=== PATIENT | female | born 1970 | race Caucasian/White ===

== ENCOUNTER → 2017-05-31 | Outpatient (CLI) | payer OTHER | LOC: CIMAGING 07:04 | PROVIDERS: ATTEND Physician Assistant | DX: K76.0 Fatty (change of) liver, not elsewhere classified (principal); I70.0 Atherosclerosis of aorta | CPT/HCPCS: 76705-PO ==

== ENCOUNTER 2017-08-12 17:26 | Inpatient (IN) | payer OTHER ==
[2017-08-12] MEDS ORDERED: NS 1,000 ML IV ONE ×2 (17:43→18:08)
[2017-08-12] MEDS ORDERED: ONDANSETRON 4 MG/2 ML VIAL IVP ONE (17:43)
[2017-08-12 17:48] LABS: HEMATOCRIT 45.9 % (38.0-47.0); HEMOGLOBIN 16.1 g/dL (12.6-16.3); MEAN CELL HEMOGLOBIN 36.5 pg (27.9-34.1); MEAN CELL HEMOGLOBIN CONCENTR. 35.1 g/dL (32.4-36.7); MEAN CELL VOLUME 104.1 fL (81.5-99.8); RED BLOOD CELL COUNT 4.41 10^6/uL (4.18-5.33); RED CELL DISTRIBUTION WIDTH 13.6 % (11.5-15.2)
[2017-08-12 18:01] LABS: ALBUMIN 5.8 g/dL (3.5-5.0); BILIRUBIN,TOTAL 1.9 mg/dL (0.1-1.4); CALCIUM 9.8 mg/dL (8.5-10.4); POTASSIUM 4.9 mEq/L (3.5-5.2); TOTAL PROTEIN 9.6 g/dL (6.3-8.2)
[2017-08-12] MEDS ORDERED: HYDROmorphONE/DILAUDID 1 MG/ML INJ IVP ONE (18:07)
[2017-08-12] MEDS ORDERED: KETOROLAC 30 MG/1 ML SDV IVP ONE (18:07)
[2017-08-12] MEDS ORDERED: KETOROLAC 30 MG/1 ML SDV ONE (18:23)
--- NOTE | 2017-08-12 18:45 | EDPHY ---
H & P Stated Complaint: c/o N/V/abd pain x 2 days Time Seen by Provider: 08/12/17 17:56 HPI/ROS: This patient complains of vomiting since Saturday afternoon x1 and then recurrent vomiting since 12:30 am with vomiting as frequently as every 20 minutes per patient. She reports concurrent onset of crampy abdominal pain located primarily in the epigastrium. She describes this as achy and crampy in nature, severe intensity radiating to her back. She has not had this type of belly problem before. She feels slightly bloated in addition to her other symptoms. She reports onset this evening of generalized weakness with her symptoms. She notes no exacerbating factors. She tried multiple positions but was unable to get comfortable. She notes no significant worsening of her abdominal pain with movement. ROS: Constitutional: No fevers or chills. HEENT: No URI symptoms recently Pulmonary: She reports some mild shortness of breath this afternoon. No coughing. Cardiovascular: No chest pain or heart palpitations. GI: No hematemesis. She reports mild constipation but still having bowel movements. Last bowel movement was 2 days prior to arrival normal consistency. She has been unable to tolerate p. o. food for 2 days. Minimal Pedialyte between vomiting : Last menstrual period-irregular due to Mirena ring. No vaginal discharge. No urinary symptoms. Integumentary: No skin rash Endocrine: No complaints Complete review of symptoms otherwise negative Source: Patient Exam Limitations: No limitations - Personal History LMP (Females 10-55): IUD In Place Current Tetanus Diphtheria and Acellular Pertussis (TDAP): Yes - Medical/Surgical History Other PMH: Currently under GI care for Reacurring Reflux/ bloating/ constipation - Family History Significant Family History: No pertinent family hx - Social History Smoking Status: Never smoked Alcohol Use: Heavy (The patient admits having 4-5 mixed drinks per day most days of the week.) Drug Use: None - Physical Exam Exam: Vital signs are normal with exception of hypertension 178/90 General Appearance: Alert, no distress. Eyes: Pupils equal and round no pallor or injection. ENT, Mouth: Mucous membranes moist. Respiratory: There are no retractions, lungs are clear to auscultation. Cardiovascular: Regular rate and rhythm. No murmur gallop or rub Gastrointestinal: Hypoactive bowel sounds with moderate epigastric tenderness and right upper quadrant tenderness. No guarding or rebound. No organomegaly is appreciated. Neurological: GCS 15. No focal deficits. Skin: Warm and dry, no rashes. Musculoskeletal: Neck is supple nontender. Extremities are symmetrical, full range of motion. Psychiatric: Patient is anxious. Otherwise mood and affect are normal. DIFFERENTIAL DIAGNOSIS: After history and physical exam differential diagnosis was considered for acute pancreatitis, cholecystitis, hepatitis, alcoholic ketoacidosis, dehydration, bowel obstruction Constitutional: Initial Vital Signs Temperature (C) 36.6 C 08/12/17 17:36 Heart Rate 74 08/12/17 17:36 Respiratory Rate 18 08/12/17 17:36 Blood Pressure 178/90 H 08/12/17 17:36 O2 Sat (%) 94 08/12/17 17:36 O2 Delivery Mode Room Air Allergies/Adverse Reactions: No Known Allergies Allergy (Unverified 08/12/17 18:54) Home Medications: Medication Instructions Recorded Effexor 08/12/17 Lisinopril 08/12/17 Medical Decision Making - Diagnostics Imaging: Discussed imaging studies w/ square dance caller Radiologist ED Course/Re-evaluation: Labs reveals significant leukocytosis and findings consistent with pancreatitis along with mildly elevated LFTs. IV normal saline bolus x2 L IV zofran with resolution of N/V Toradol, dilauded IV with partial relief of pain Patient's gallbladder ultrasound reveals no gallstones per Dr. Barrett - radiologist who reviewed the study. Discussion: Patient with alcohol pancreatitis warranting admission for aggressive hydration & further treatment. I counseled the patient regarding the plan. I spoke with Dr. Camron Hogan, hospitalist regarding this patient with plan for admission to [facility] for acute pancreatitis. Patient is stable at the time of transfer. - Data Points Laboratory Results: Laboratory Results 08/12/17 17:39 08/12/17 17:39 Medications Given: Hydromorphone/Sodium Chloride (Hydromorphone) 0.2 - 0.4 mg IVP Q2H PRN PRN Reason: Pain, Severe Unable to Take PO Stop: 08/22/17 22:25 Last Admin: 08/12/17 23:12 Dose: 0.4 mg Dextrose/Sodium Chloride (D5w 1/2 Ns) 1,000 mls @ 100 mls/hr IV CONT DIALLO Stop: 02/08/18 22:29 Last Admin: 08/12/17 23:11 Dose: 1,000 mls Ondansetron HCl (Zofran) 4 mg IVP Q4HRS PRN PRN Reason: Nausea/Vomiting, Can't Take PO Stop: 02/08/18 22:25 Last Admin: 08/12/17 23:11 Dose: 4 mg Oxycodone HCl (Oxycodone Ir) 5 - 10 mg PO Q3HRS PRN PRN Reason: Pain, Severe Able to Take PO Stop: 08/22/17 22:25 Last Admin: 08/13/17 06:49 Dose: 10 mg Discontinued Medications Hydromorphone HCl (Dilaudid) 0.5 mg IVP EDNOW ONE Stop: 08/12/17 18:08 Last Admin: 08/12/17 18:58 Dose: 0.5 mg Sodium Chloride (Ns) 1,000 mls @ 0 mls/hr IV ONCE ONE PRN Reason: Wide Open Stop: 08/12/17 17:44 Last Admin: 08/12/17 17:50 Dose: 1,000 mls Sodium Chloride (Ns) 1,000 mls @ 0 mls/hr IV EDNOW ONE; Wide Open PRN Reason: Protocol Stop: 08/12/17 18:09 Last Admin: 08/12/17 18:56 Dose: 1,000 mls Ketorolac Tromethamine (Toradol) 30 mg IVP EDNOW ONE Stop: 08/12/17 18:08 Last Admin: 08/12/17 18:57 Dose: 30 mg Ondansetron HCl (Zofran) 4 mg IVP EDNOW ONE Stop: 08/12/17 17:44 Last Admin: 08/12/17 17:51 Dose: 4 mg Departure - Departure Disposition: [facility]
[2017-08-12 20:57] LABS: LEUKOCYTE ESTERASE,URINE NEGATIVE (NEGATIVE); NITRITE,URINE NEGATIVE (NEGATIVE)
[2017-08-12 21:02] LABS: COLOR DARK YELLOW
[2017-08-12 21:05] LABS: BACTERIA TRACE /hpf (NONE SEEN); HYALINE CASTS 15-25 /lpf (0-1); MUCUS 2+ /lpf (NONE-1+); WBC,URINE OCCASIONAL /hpf (0-3)
[2017-08-12 21:08] LABS: ANION GAP 22 mEq/L (8-16); CALCIUM 8.2 mg/dL (8.5-10.4); CARBON DIOXIDE 20 mEq/l (22-31); CHLORIDE 100 mEq/L (97-110); CREATININE 0.8 mg/dL (0.6-1.0); GLOMERULAR FILTRATION RATE > 60; GLUCOSE 145 mg/dL (70-100); POTASSIUM 4.1 mEq/L (3.5-5.2); SODIUM 142 mEq/L (134-144)
[2017-08-12] MEDS ORDERED: HYDROmorphone HCL/NS/PF 0.4 MG/2 ML SYR IVP PRN (22:26)
[2017-08-12] MEDS ORDERED: PROMETHAZINE HCL 25 MG/ML INJ IVP PRN (22:26)
[2017-08-12] MEDS ORDERED: ACETAMINOPHEN 325 MG TAB PO PRN (22:26)
[2017-08-12] MEDS ORDERED: ONDANSETRON 4 MG/2 ML VIAL IVP PRN (22:26)
[2017-08-12] MEDS ORDERED: ONDANSETRON DISINTEGRATING 4 MG TAB PO PRN (22:26)
[2017-08-12] MEDS ORDERED: MELATONIN 3 MG TAB PO PRN (22:51)
[2017-08-12] MEDS: D5W 1/2 NS 1,000 ML IV SCH (23:11)
--- NOTE | 2017-08-13 00:15 | PDGENHP ---
History and Physical - Chief Complaint Vomiting - History of Present Illness 47 yo F w/ HTN and ETOH abuse presents with vomiting and abdominal pain. Patient drinks 1 pint of vodka daily about 4-5 times weekly; she has been doing this for a few years. Early this morning she began to have intractable vomiting and associated moderate to severe abdominal pain with radiation to her back. She denies blood in her vomit or stool. She also denies melena. Her only complaint currently is abdominal pain, but this is much better than earlier in the day. She denies any symptoms of withdrawal and says she has never been admitted to a hospital for withdrawal in the past. Her last drink was 6 PM on Saturday. History Information - Allergies/Home Medication List Allergies/Adverse Reactions: No Known Allergies Allergy (Unverified 08/12/17 18:54) Home Medications: Effexor 08/12/17 [Last Taken Unknown] Lisinopril 08/12/17 [Last Taken Unknown] I have personally reviewed and updated: family history, medical history - Past Medical History hypertension Additional medical history: ETOH abuse - Family History Positive for: hypertension - Social History Smoking Status: Never smoked Alcohol Use: Heavy (The patient admits having 4-5 mixed drinks per day most days of the week.) Drug Use: None Review of Systems Review of Systems: ROS: 10pt was reviewed & negative except for what was stated in HPI & below Physical Exam Physical Exam: Temp Pulse Resp BP Pulse Ox 36.9 C 95 16 176/113 H 96 08/12/17 22:52 08/12/17 22:52 08/12/17 22:52 08/12/17 22:52 08/12/17 22:52 Constitutional: no apparent distress, not in pain Eyes: PERRL, EOMI Ears, Nose, Mouth, Throat: moist mucous membranes, no oral mucosal ulcers Cardiovascular: systolic murmur, tachycardia Respiratory: no respiratory distress, clear to auscultation Gastrointestinal: normoactive bowel sounds, tenderness (Epi-gastric), No youssef' s sign, No guarding, No rebound, No distension Skin: warm, normal color Musculoskeletal: full muscle strength, no muscle tenderness Neurologic: AAOx3, CN II-XII Intact Psychiatric: interacting appropriately, not anxious Lab Data & Imaging Review 08/12/17 17:39 08/12/17 20:52 WBC 18.85 10^3/uL (3.80-9.50) H 08/12/17 17:39 RBC 4.41 10^6/uL (4.18-5.33) 08/12/17 17:39 Hgb 16.1 g/dL (12.6-16.3) 08/12/17 17:39 Hct 45.9 % (38.0-47.0) 08/12/17 17:39 MCV 104.1 fL (81.5-99.8) H 08/12/17 17:39 MCH 36.5 pg (27.9-34.1) H 08/12/17 17:39 MCHC 35.1 g/dL (32.4-36.7) 08/12/17 17:39 RDW 13.6 % (11.5-15.2) 08/12/17 17:39 Plt Count 246 10^3/uL (150-400) 08/12/17 17:39 Sodium 142 mEq/L (134-144) 08/12/17 20:52 Potassium 4.1 mEq/L (3.5-5.2) 08/12/17 20:52 Chloride 100 mEq/L (97-110) 08/12/17 20:52 Carbon Dioxide 20 mEq/l (22-31) L D 08/12/17 20:52 Anion Gap 22 mEq/L (8-16) H 08/12/17 20:52 BUN 16 mg/dL (7-23) 08/12/17 20:52 Creatinine 0.8 mg/dL (0.6-1.0) 08/12/17 20:52 Estimated GFR > 60 08/12/17 20:52 Glucose 145 mg/dL (70-100) H 08/12/17 20:52 Calcium 8.2 mg/dL (8.5-10.4) L D 08/12/17 20:52 Total Bilirubin 1.9 mg/dL (0.1-1.4) H 08/12/17 17:39 AST 100 IU/L (14-46) H 08/12/17 17:39 ALT 81 IU/L (9-52) H 08/12/17 17:39 Alkaline Phosphatase 59 IU/L (38-126) 08/12/17 17:39 Total Protein 9.6 g/dL (6.3-8.2) H 08/12/17 17:39 Albumin 5.8 g/dL (3.5-5.0) H 08/12/17 17:39 Lipase 866 IU/L (23-300) H 08/12/17 17:39 Beta HCG, Qual NEGATIVE 08/12/17 18:39 Urine Color DARK YELLOW 08/12/17 20:50 Urine Appearance HAZY 08/12/17 20:50 Urine pH 6.0 (5.0-7.5) 08/12/17 20:50 Ur Specific [place] 1.025 (1.002-1.030) 08/12/17 20:50 Urine Protein 1+ (NEGATIVE) H 08/12/17 20:50 Urine Ketones 3+ (NEGATIVE) H 08/12/17 20:50 Urine Blood TRACE (NEGATIVE) H 08/12/17 20:50 Urine Nitrate NEGATIVE (NEGATIVE) 08/12/17 20:50 Urine Bilirubin POSITIVE (NEGATIVE) H 08/12/17 20:50 Urine Urobilinogen 0.2 EU (0.2-1.0) 08/12/17 20:50 Ur Leukocyte Esterase NEGATIVE (NEGATIVE) 08/12/17 20:50 Urine RBC 1-3 /hpf (0-3) 08/12/17 20:50 Urine WBC OCCASIONAL /hpf (0-3) 08/12/17 20:50 Ur Epithelial Cells 2+ /lpf (NONE-1+) H 08/12/17 20:50 Urine Bacteria TRACE /hpf (NONE SEEN) H 08/12/17 20:50 Hyaline Casts 15-25 /lpf (0-1) H 08/12/17 20:50 Urine Mucus 2+ /lpf (NONE-1+) H 08/12/17 20:50 Urine Glucose NEGATIVE (NEGATIVE) 08/12/17 20:50 Imaging Review: Abdominal U/S with no acute findings, fatty liver noted. Assessment & Plan Assessment: 47 yo F w/ HTN and ETOH abuse presents with alcoholic pancreatitis. Plan: 1. Alcoholic pancreatitis - Abdominal pain with radiation to the back and elevated lipase in the setting of heavy ETOH use. WBC of 18 but no signs of sepsis at this time. Abdominal ultrasound unremarkable. There may be some contribution from gastritis as well. - NPO, mIVF, pain control - ADAT - Will start daily PPI - Counseled ETOH cessation 2. Abnormal LFTs - Transaminitis and elevated bili c/w mild alcoholic hepatitis. - Trend LFTs - Will check INR to calculate DF 3. ETOH abuse - Patient drinks 1 pint vodka 4-5x weekly. Denies previous history of withdrawal requiring hospitalization. - Monitor BMP, Mg, Ph - Monitor for signs of w/d, will not order CIWA at this time 4. HTN - On lisinopril as an outpatient, continue Diet - NPO, ADAT Code - Full Ppx - SCDs Dispo - Admit to observation status
[2017-08-13 05:52] LABS: % IMMATURE GRANULYOCYTES 0.7 % (0.0-1.1); ABSOLUTE IMMATURE GRANULOCYTES 0.12 10^3/uL (0.00-0.10); ADD DIFF? NO; ADD MORPH? NO; ADD SCAN? NO; ATYPICAL LYMPHOCYTE FLAG 0 (0-99); FRAGMENT RBC FLAG 0 (0-99); HEMATOCRIT 41.3 % (38.0-47.0); HEMOGLOBIN 13.9 g/dL (12.6-16.3); LEFT SHIFT FLG 0 (0-99); LIPEMIA HEMOLYSIS FLAG 80 (0-99); MEAN CELL HEMOGLOBIN 35.6 pg (27.9-34.1); MEAN CELL HEMOGLOBIN CONCENTR. 33.7 g/dL (32.4-36.7); MEAN CELL VOLUME 105.9 fL (81.5-99.8); MEAN PLATELET VOLUME 10.9 fL (8.7-11.7); PLATELET CLUMPS FLAG 0 (0-99); PLATELET COUNT 197 10^3/uL (150-400); RED CELL DISTRIBUTION WIDTH 13.7 % (11.5-15.2)
[2017-08-13 06:08] LABS: ALANINE AMINOTRANSFERASE 62 IU/L (9-52); ALBUMIN 4.4 g/dL (3.5-5.0); ALKALINE PHOSPHATASE 48 IU/L (38-126); ANION GAP 16 mEq/L (8-16); ASPARTATE AMINOTRANSFERASE 61 IU/L (14-46); BILIRUBIN,TOTAL 1.2 mg/dL (0.1-1.4); CALCIUM 8.6 mg/dL (8.5-10.4); CARBON DIOXIDE 23 mEq/l (22-31); CHLORIDE 101 mEq/L (97-110); CREATININE 0.9 mg/dL (0.6-1.0); GLOMERULAR FILTRATION RATE > 60; GLUCOSE 116 mg/dL (70-100); MAGNESIUM 1.8 mg/dL (1.6-2.3); POTASSIUM 4.3 mEq/L (3.5-5.2); SODIUM 140 mEq/L (134-144); TOTAL PROTEIN 6.9 g/dL (6.3-8.2)
[2017-08-13 06:21] LABS: PROTIME(PATIENT) 13.1 SEC (12.0-15.0)
[2017-08-13] MEDS: oxyCODONE IR 5 MG TAB PO PRN ×4 (06:49→19:33)
[2017-08-13] MEDS: PANTOPRAZOLE SODIUM 40 MG TAB PO SCH (10:35)
[2017-08-13] MEDS ORDERED: LORazepam 2 MG/ML INJ IVP PRN (10:56)
[2017-08-13] MEDS ORDERED: LORazepam 2 MG/ML INJ IVP ONE (10:56)
--- NOTE | 2017-08-13 11:21 | ASMTCAGE ---
CAGE Do you feel you ought to Answers: Yes cut down on your drinking or drug use? Do people annoy you by Answers: Yes criticizing your drinking or drug use? Do you feel guilty about Answers: Yes your drinking or drug use? 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 Date Signed: 08/13/2017 11:20 AM Electronically Signed By:Emily Merrill RN
--- NOTE | 2017-08-13 11:27 | ASMTCMCOM ---
CM Note CM Note Notes: Chart reviewed. Positive SBIRT. Cage questionnaire done. Patient open about drinking to excess. She reports she is going through a divorce, self medicating for coping. Patient provided alcohol abuse resources as well as mental health partners. I have encouraged her to consider inpatient treatment as she has insurance and is likely to start severe withdrawal today or tomorrow. Plan will be home independent or maybe to alcohol inpatient treatment, CM to follow. Date Signed: 08/13/2017 11:27 AM Electronically Signed By:Emily Merrill RN
--- NOTE | 2017-08-13 11:39 | HOSPPROG ---
Hospitalist Progress Note Assessment/Plan: DIAGNOSES: -acute pancreatitis, alcohol induced -at risk for acute alcohol withdrawal so needs monitoring -Acute metabolic acidosis likely due to pancreatitis, improving -alcoholism; strongly suspect thiamin deficiency; alcohol induced hepatic steatosis noted on ultrasound -macrocytic anemia, likely due to her alcohol use syndrome I reviewed her diagnoses with her in detail today. I reviewed the potential for pancreatitis to become worse with future episodes, and the potential for chronic complications of alcohol with [place]eman induced pancreas injury. We talked about the likely poisoning of her other organs and tissues as well. I did review with her alcohol see sedation issues in detail and spent quite a bit of time on the steps and alcohol cessation, and the available resources etc. PLANS: Continue IV fluids and analgesics as needed Will try clear liquids today and see if she can tolerate small amounts of that CIWA monitoring protocol initiated at this time Have reconciled her home medicines I have added thiamin to her medication regimen here SUBJECTIVE: Still with epigastric pain radiating through to midback, some nausea but no vomiting Still using narcotic analgesic No fever or respiratory symptoms OBJECTIVE Vitals reviewed: Some hypertension, intermittently some tachycardia, no fever Exam: alert oriented currently no tremor or anxiety skin warm dry color ok resps not labored lungs clear BSs heart regular abd soft mildly distended, tender in the epigastrium and left upper quadrant, bowel sounds present limbs warm, no edema iv site ok Labs reviewed, some improvement in her at acid-base status as well as her liver enzymes and bilirubin though all of these are still abnormal Abdominal ultrasound, I reviewed images. No stones seen but there is steatosis of the liver likely induced by alcohol Objective: Vital Signs Temp Pulse Resp BP Pulse Ox 36.6 C 90 14 147/103 H 100 08/13/17 08:00 08/13/17 08:00 08/13/17 08:00 08/13/17 08:00 08/13/17 08:00 Laboratory Results 08/13/17 04:27 08/13/17 04:27 08/12/17 08/13/17 08/14/17 06:59 06:59 06:59 Intake Total 2800 Output Total 0 Balance 2800 PT 13.1 SEC (12.0-15.0) 08/13/17 04:27 INR 1.00 (0.83-1.16) 08/13/17 04:27 - Time Spent With Patient Time Spent with Patient: greater than 35 minutes Time Spent with Patient: Greater than 35 minutes spent on this patients care, greater than 50% of time spent counseling, educating, and coordinating care regarding the above mentioned plan. ICD10 Worksheet Patient Problems: Problems Problem Status Onset Pancreatitis Acute - ICD10 Problem Qualifiers (1) Pancreatitis
[2017-08-13] MEDS: VENLAFAXINE XR 75 MG CAP PO SCH (11:45)
[2017-08-13] MEDS: LISINOPRIL 10 MG TAB PO SCH (11:45)
[2017-08-13] MEDS: THIAMINE HCL 100 MG TAB PO SCH (11:45)
[2017-08-13] MEDS: D5W 1/2 NS 1,000 ML IV SCH (13:14)
[2017-08-14] MEDS: D5W 1/2 NS 1,000 ML IV SCH (00:51)
[2017-08-14 05:29] LABS: % IMMATURE GRANULYOCYTES 0.4 % (0.0-1.1); ABSOLUTE IMMATURE GRANULOCYTES 0.03 10^3/uL (0.00-0.10); ADD DIFF? NO; ADD MORPH? NO; ADD SCAN? NO; ATYPICAL LYMPHOCYTE FLAG 0 (0-99); FRAGMENT RBC FLAG 0 (0-99); HEMOGLOBIN 13.6 g/dL (12.6-16.3); LEFT SHIFT FLG 0 (0-99); LIPEMIA HEMOLYSIS FLAG 90 (0-99); MEAN CELL HEMOGLOBIN 35.6 pg (27.9-34.1); MEAN CELL VOLUME 104.7 fL (81.5-99.8); MEAN PLATELET VOLUME 10.7 fL (8.7-11.7); PLATELET CLUMPS FLAG 0 (0-99); PLATELET COUNT 148 10^3/uL (150-400); RED BLOOD CELL COUNT 3.82 10^6/uL (4.18-5.33); RED CELL DISTRIBUTION WIDTH 13.5 % (11.5-15.2)
[2017-08-14 06:00] LABS: ANION GAP 9 mEq/L (8-16); CALCIUM 8.9 mg/dL (8.5-10.4); CARBON DIOXIDE 30 mEq/l (22-31); CHLORIDE 103 mEq/L (97-110); CREATININE 0.7 mg/dL (0.6-1.0); GLOMERULAR FILTRATION RATE > 60; GLUCOSE 91 mg/dL (70-100); MAGNESIUM 1.9 mg/dL (1.6-2.3); POTASSIUM 3.8 mEq/L (3.5-5.2); SODIUM 142 mEq/L (134-144)
[2017-08-14] MEDS ORDERED: FOLIC ACID 1 MG TAB PO SCH (09:00)
[2017-08-14] MEDS ORDERED: CYANO/VITAMIN B12 1000 MCG TAB PO SCH (09:00)
[2017-08-14] MEDS: THIAMINE HCL 100 MG TAB PO SCH (09:17)
[2017-08-14] MEDS: LISINOPRIL 10 MG TAB PO SCH (09:17)
[2017-08-14] MEDS: VENLAFAXINE XR 75 MG CAP PO SCH (09:20)
[2017-08-14] MEDS: oxyCODONE IR 5 MG TAB PO PRN (09:27)
[2017-08-14] MEDS: PANTOPRAZOLE SODIUM 40 MG TAB PO SCH (09:27)
--- NOTE | 2017-08-14 10:53 | PDMN ---
Medical Necessity Medical necessity: M595 substance related disorders- M250 pancreatitis- ongoing abd pain, minimal PO intake , CIWA initiated - further monitoring needed, some HTN, intermittently tachycardia noted.
[2017-08-14 11:23] VITALS: BP 137/94; PULSE 88; RESP 18; TEMP 98.1; O2SAT 96
--- NOTE | 2017-08-14 11:28 | PDDCSUM ---
Discharge Summary Discharge Summary: DISCHARGE DIAGNOSES: Acute alcohol-induced pancreatitis without complications Alcoholism Suspected vitamin B1 deficiency HOSPITAL COURSE SUMMARY: This patient who drinks up to a pt of vodka most days came in with epigastric pain radiating to the midback and had an elevated lipase consistent with alcohol -induced pancreatitis. Her illness was fairly mild and with gut rest and hydration she resolved fairly quickly and is now back to eating a low-fat diet without difficulty and with minimal discomfort. She is felt stable for discharge. There has been no signs of any complications of pancreatitis. She is strongly committed to stopping alcohol. She did not have any significant alcohol withdrawal here. She has a close friend who is a currently sober recovering alcoholic and they plan to partner together to help each other stay away from alcohol. The patient is also going to engage a counselor and other resources. She will follow up with Dr. Bullock her primary care doctor in 2 weeks with a pre existing appointment. The patient is instructed to keep on a low-fat diet for 6-8 weeks. The patient had numerous questions about pancreatitis and about nutrition and we talked about these in detail and answered her questions to her satisfaction. She is able to go back to work at this time without restrictions. PENDING TEST RESULTS: None MEDICATION CHANGES: None FOLLOW-UP PLAN: With Dr. Bullock in 2 weeks Greater than 35 minutes bedside and care coordination time today
--- NOTE | 2017-08-14 15:54 | ASDISCHSUM ---
Discharge Information Plan Status:Home with No Needs Medically Cleared to Leave: Discharge Date:08/14/2017 03:26 PM CM D/C Disposition: ADT D/C Disposition:Home, Routine, Self-Care Projected Discharge Date:08/14/2017 12:00 AM Transportation at D/C: Discharge Delay Reason: Follow-Up Date:08/14/2017 12:00 AM Discharge Slot: Final Diagnosis: Placement Information Patient Contact Information Contact Name:TINO Relationship: Address:[address] [place] [address] City:[place] [facility] Phone: [facility]/Zip Code:[place] [address] Email: Financial Information Financial Class:HMO and PPO Plans Primary Plan Desc:[facility] Primary Plan Number:[id number] Secondary Plan Desc: Secondary Plan Number: Assessment Information CAGE Questionnaire CAGE Do you feel you ought to Answers: Yes cut down on your drinking or drug use? Do people annoy you by Answers: Yes criticizing your drinking or drug use? Do you feel guilty about Answers: Yes your drinking or drug use? 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 Date Signed: 08/13/2017 11:20 AM Electronically Signed By:Emily Merrill RN LACE LACTheresa Length of stay for Answers: 1 day current admission Acuity / Level of Care Answers: Was the patient admitted to hospital via the emergency department? Yes: Comorbidities - select Answers: Mild liver or renal all that apply disease Emergency dept visits in Answers: 0 last 6 months Score: 6 Date Signed: 08/13/2017 11:21 AM Electronically Signed By:Emily Merrill RN [facility] Progress Note CM Note CM Note Notes: Chart reviewed. Positive SBIRT. Cage questionnaire done. Patient open about drinking to excess. She reports she is going through a divorce, self medicating for coping. Patient provided alcohol abuse resources as well as mental health partners. I have encouraged her to consider inpatient treatment as she has insurance and is likely to start severe withdrawal today or tomorrow. Plan will be home independent or maybe to alcohol inpatient treatment, CM to follow. Date Signed: 08/13/2017 11:27 AM Electronically Signed By:Emily Merrill RN Intervention Information Intervention Type:*Incorrect Registration Date of Service:08/13/2017 08:29 AM Patient Type:Inpatient Staff Member:DOROTHY Klein, Thao Hours: Discipline: Severity: Comment:
== END 2017-08-14 15:26 | disposition home or self-care (01) | DRG 439 ==
LOC: CED 17:26 → CEDHOLD 18:20 → INTOOBSV 18:20 → F3E 22:33 → OBSVTOIN 08-13 18:01
PROVIDERS: ADMIT Student in an Organized Health Care Education/Training Program; ATTEND Internal Medicine
DX: K85.20 Alcohol induced acute pancreatitis without necrosis or infection (principal); F10.20 Alcohol dependence, uncomplicated; E51.9 Thiamine deficiency, unspecified; E87.2 Acidosis; I10 Essential (primary) hypertension; D53.9 Nutritional anemia, unspecified
CPT/HCPCS: 76705-PO; 80048-PO; 80053-PO; 81003-PO; 81015-PO; 83690-PO; 84703-PO; 85027-PO; 96374; G0378; J1170; J1885; J2405